=== PATIENT | male | born 1990 | race American Indian/Alaskan Native ===

== ENCOUNTER 2018-01-14 12:08 | Emergency (ER) | payer OTHER ==
[2018-01-14 12:30] VITALS: BP 123/79; PULSE 68; RESP 20; TEMP 98.8; O2SAT 98
--- NOTE | 2018-01-14 12:55 | ED PDOC ---
Arrival/HPI - General Chief Complaint: Dental Pain Historian: Patient - History of Present Illness Narrative History of Present Illness (Text): 01/14/18 12:52 Surjit Patel is a 27 year old male, with no significant past medical history , who presents to the emergency department complaining of right sided tooth pain that radiates to the right ear for a couple days. Patient notes he has difficulty opening his mouth wide. Patient denies any fever, chills, vomiting, chest pain, back pain neck pain, or any other complaints. Time/Duration: < week Symptom Onset: Gradual Symptom Course: Unchanged Activities at Onset: Light Context: Home Past Medical History - Provider Review Nursing Documentation Reviewed: Yes - Infectious Disease Hx of Infectious Diseases: None - Psychiatric Hx Substance Use: No - Anesthesia Hx Anesthesia: Yes Hx Anesthesia Reactions: No Hx Malignant Hyperthermia: No Family/Social History - Physician Review Nursing Documentation Reviewed: Yes Family/Social History: Unknown Family HX Smoking Status: Never Smoked Hx Alcohol Use: Yes Hx Substance Use: No Allergies/Home Meds Allergies/Adverse Reactions: Allergies No Known Allergies Allergy (Verified 01/14/18 12:27) Review of Systems - Physician Review All systems were reviewed & negative as marked: Yes - Review of Systems Constitutional: Normal Eyes: Normal ENT: Other (rigth sided tooth pain + right ear pain) Respiratory: Normal. absent: SOB, Cough Cardiovascular: Normal. absent: Chest Pain Gastrointestinal: Normal. absent: Abdominal Pain, Diarrhea, Nausea, Vomiting Genitourinary Male: Normal Musculoskeletal: Normal. absent: Back Pain, Neck Pain Skin: Normal. absent: Rash Neurological: Normal. absent: Headache, Dizziness Endocrine: Normal Hemo/Lymphatic: Normal Psychiatric: Normal Physical Exam Vital Signs Reviewed: Yes Vital Signs Temp Pulse Resp BP Pulse Ox 01/14/18 12:28 98.8 F 68 20 123/79 98 Temperature: Afebrile Blood Pressure: Normal Pulse: Regular Respiratory Rate: Normal Appearance: Positive for: Well-Appearing, Non-Toxic, Comfortable Pain Distress: None Mental Status: Positive for: Alert and Oriented X 3 - Systems Exam Head: Present: Atraumatic, Normocephalic Pupils: Present: PERRL Extroacular Muscles: Present: EOMI Conjunctiva: Present: Normal Mouth: Present: Moist Mucous Membranes, Other (impacted wisdom tooth with gingival irritation and tenderness). No: Normal Teeth Neck: Present: Normal Range of Motion Respiratory/Chest: Present: Clear to Auscultation, Good Air Exchange. No: Respiratory Distress, Accessory Muscle Use Cardiovascular: Present: Regular Rate and Rhythm, Normal S1, S2. No: Murmurs Abdomen: Present: Normal Bowel Sounds. No: Tenderness, Distention, Peritoneal Signs Back: Present: Normal Inspection Upper Extremity: Present: Normal Inspection. No: Cyanosis, Edema Lower Extremity: Present: Normal Inspection. No: Edema Neurological: Present: GCS=15, CN II-XII Intact, Speech Normal Skin: Present: Warm, Dry, Normal Color. No: Rashes Psychiatric: Present: Alert, Oriented x 3, Normal Insight, Normal Concentration Medical Decision Making ED Course and Treatment: 01/14/18 12:58 Impression: 27 year old male presents to the ED complaining of right tooth pain for a couple of days. Differential Diagnosis: impacted wisdom tooth/gingivitis Plan: -- Reasses and Disposition Progress Notes: 01/14/18 19:26 Disposition/Present on Arrival - Present on Arrival Any Indicators Present on Arrival: No - Disposition Have Diagnosis and Disposition been Completed?: Yes Diagnosis: Gingivitis, Pain, dental Disposition: HOME/ ROUTINE Disposition Time: 13:05 Patient Plan: Discharge Condition: FAIR Discharge Instructions (ExitCare): Gingivitis (DC), Dental Pain (DC) Print Language: ARABIC Prescriptions: Chlorhexidine 0.12% [Peridex] 15 ml MM TID #1 bottle Naproxen 375 mg PO Q8 PRN #21 tablet PRN Reason: Pain, Moderate (4-7) Omeprazole Magnesium [Prilosec Otc] 20 mg PO DAILY #10 tablet.dr Olivia VK [Penicillin VK Tab] 500 mg PO QID #40 tab Referrals: Marty Demarco DDS [Staff Provider] - Forms: [facility] (Thai), [facility] ED School/Work Excuse
== END 2018-01-14 13:19 | disposition home or self-care (01) ==
LOC: H.ER 12:08
DX: K05.10 Chronic gingivitis, plaque induced (principal); K01.1 Impacted teeth